=== PATIENT | female | born 1995 | race Caucasian/White ===

== ENCOUNTER 2019-05-09 10:42 | Emergency (ER) | payer SELFPAY ==
[2019-05-09 10:55] VITALS: BP 134/79; PULSE 86; RESP 18; TEMP 37; O2SAT 98; BMI 23.6
--- NOTE | 2019-05-09 11:00 | ED_ITS ---
HPI - Headache General: Chief Complaint: Altered Mental Status Stated Complaint: headache, cant remember. Patient comes in today complaining of a headache that started last night. Patient states she got upset and threw her girlfriend out but does not remember anything after that except waking up this morning with her headache. Patient states that she has had several concussion and has been diagnosed with postconcussion syndrome in the past. Patient appears well. Patient appears in no acute distress. Patient reports history of migraine headaches since childhood. No obvious deficits are noted. Patient appears well. Patient appears in mild to moderate pain. Time Seen by Provider: 05/09/19 10:59 Source: patient Mode of arrival: ambulatory Limitations: no limitations Review of Systems General: Reports: 10 or more systems reviewed and unremarkable except in HPI and below Neuro: Reports: headache PFSH ED PFSH: Statuses (acute, chronic, etc) shown below reflect problem list status as previously entered and may not be historically accurate Social History Smoking and tobacco status: current every day smoker Physical Exam Const: COMMON NORMALS: no apparent distress and oriented x3 GENERAL APPEARANCE: cooperative HENMT: COMMON NORMALS: normocephalic, external ears normal, EAC's normal, TM's normal bilaterally and external nose normal HEAD & SCALP: normal to inspection and normocephalic FACE & SINUS: normal facial exam NOSE: external nose normal GENERAL EAR: hearing grossly impaired EXTERNAL EAR: Yes external ears normal EXTERNAL AUDITORY CANAL: EAC's normal TYMPANIC MEMBRANE: TM's normal bilaterally MOUTH: oral and palatal mucosa normal THROAT: posterior oropharynx normal Eye: COMMON NORMALS: PERRL and EOMs intact bilaterally PUPIL: Yes PERRL Neck/C-Spine: COMMON NORMALS: full ROM and no lymphadenopathy Lymph: LYMPHATIC: no lymphedema noted Chest: COMMONS NORMALS: inspection of chest normal and palpation of chest normal Resp: COMMON NORMALS: normal respiratory effort and clear to auscultation bilaterally AUSCULTATION: clear to auscultation bilaterally Cardio: COMMON NORMALS: regular rate and regular rhythm RATE: regular rate RHYTHM: regular rhythm GI: COMMON NORMALS: normal to inspection, nondistended, normoactive bowel sounds and non-tender : COMMON NORMALS: Yes no CVA tenderness BLADDER/KIDNEY EXAM: Yes no CVA tenderness Back/Pelvis: COMMON NORMALS: no CVA tenderness and thoracic and lumbar spine normal to inspection Extremity: COMMON NORMALS: normal to inspection GENERAL: No edema Neuro: COMMON NORMALS: oriented x3, moves all extremities and no focal motor deficits Psych: COMMON NORMALS: mental status grossly normal and cooperative Skin: COMMON NORMALS: no rashes or lesions noted GENERAL SKIN EXAM: no rashes or lesions noted Course ED course: 1224, patient sleeping in room, no c/o noted. wjw Vital Signs: Vital signs: Vital Signs Temperature 98.6 F 05/09/19 10:55 Pulse Rate 75 05/09/19 12:01 Respiratory Rate 18 05/09/19 12:01 Blood Pressure 115/63 05/09/19 12:01 Pulse Oximetry 98 05/09/19 12:01 MDM - Headache MDM Narrative: Medical decision making narrative: Patient comes in today for persistent headache starting last night. Exam noted no focal neural deficits. Pupils were equal reactive. Patient moves all extremities well. No tenderness of the cervical spine was noted. Respirations were even lungs were clear to auscultation. Differential diagnosis includes postconcussion headaches, TBI, migraine headaches, tension type headaches, malingering. CT scan of the head noted no masses or bleeding. Laboratory values were insignificant. Patient was medicated in the ER with some mild to moderate improvement in pain. Patient will continue with naproxen and promethazine for further treatment of home for breakthrough and return of headache. Patient was recommended to follow-up with neurology with case management assistance for appointment. Patient agreed to plan and follow-up. Differential Diagnosis: Differential diagnosis headache: Likely migraine, te nsion headache, subarachnoid hemorrhage, headache and postconcussion syndrome Lab Data: Labs: Lab Results 05/09/19 05/09/19 05/09/19 Range/Units 11:35 11:40 11:40 WBC 5.9 (4.0-10.0) 10^3/ uL RBC 4.40 (4.1-5.3) 10^6/u L Hgb 12.7 (11.5-15.3) g/dL Hct 39.0 (37.0-47.0) % MCV 88.6 (81-99) fL MCH 28.9 (28.0-34.0) pg MCHC 32.6 (30.0-36.0) g/dL RDW 13.0 (12.1-15.1) % Plt Count 321 (130-400) 10^3/c mm MPV 9.7 (7.4-10.4) fL Neut % (Auto) 77.7 % Lymph % (Auto) 14.7 % Armstrong % (Auto) 4.1 % Eos % (Auto) 2.4 % Baso % (Auto) 0.9 % Neut # (Auto) 4.6 (1.8-7.7) 10^3/u L Lymph # (Auto) 0.9 (0.8-4.8) 10^3/u L Armstrong # (Auto) 0.2 (0.2-0.9) 10^3/u L Eos # (Auto) 0.1 (0.0-0.8) 10^3/u L Baso # (Auto) 0.1 (0.0-0.1) 10^3/u L Nucleated RBC % (a uto) 0 % Nucleated RBCs # 0.0 /100WBC Sodium 139 (136-145) mmol/L Potassium 3.6 (3.5-5.1) mmol/L Chloride 103 (98-107) mmol/L Carbon Dioxide 24 (22-29) mmol/L Anion Gap 15.6 (5-19) BUN 10 (6-20) mg/dL Creatinine 0.5 (0.5-0.9) mg/dL GFR Calculation 154.3 H (90-130) mL/min Glucose 101 (74-109) mg/dL Calcium 9.2 (8.6-10.0) mg/Dl Total Bilirubin 0.5 (0.15-1.2) mg/dL AST 16 (0-32) U/L ALT 13 (0-33) U/L Alkaline Phosphata se 71 (35-105) IU/L Total Protein 6.5 L (6.6-8.7) g/dL Albumin 5.2 (3.5-5.2) g/dL Globulin 1.3 (1.3-4.6) g/dL HCG, Qual (Negative) Urine Color Yellow (Yellow) Urine Appearance Hazy A (CLEAR) Urine pH 7 (5-7) Ur Specific Gravit y 1.015 (1.005-1.030) Urine Protein Neg (Negative) Urine Glucose (UA) Norm (Normal) Urine Ketones Negative (Negative) Urine Occult Blood Neg (Negative) Urine Nitrate Negative (Negative) Urine Bilirubin Neg (NEGATIVE) Urine Urobilinogen Norm (Negative) mg/dL Ur Leukocyte Janessa ase Negative (Negative) Urine RBC None (0-2) /hpf Urine WBC 0-4 H (0-5) /hpf Ur Squamous Epith Cells 10-15 H (0-5) Urine Bacteria 2+ H (NONE) Urine Mucus 2+ 05/09/19 Range/Units 11:40 WBC (4.0-10.0) 10^3/ uL RBC (4.1-5.3) 10^6/u L Hgb (11.5-15.3) g/dL Hct (37.0-47.0) % MCV (81-99) fL MCH (28.0-34.0) pg MCHC (30.0-36.0) g/dL RDW (12.1-15.1) % Plt Count (130-400) 10^3/c mm MPV (7.4-10.4) fL Neut % (Auto) % Lymph % (Auto) % Armstrong % (Auto) % Eos % (Auto) % Baso % (Auto) % Neut # (Auto) (1.8-7.7) 10^3/u L Lymph # (Auto) (0.8-4.8) 10^3/u L Armstrong # (Auto) (0.2-0.9) 10^3/u L Eos # (Auto) (0.0-0.8) 10^3/u L Baso # (Auto) (0.0-0.1) 10^3/u L Nucleated RBC % (a uto) % Nucleated RBCs # /100WBC Sodium (136-145) mmol/L Potassium (3.5-5.1) mmol/L Chloride (98-107) mmol/L Carbon Dioxide (22-29) mmol/L Anion Gap (5-19) BUN (6-20) mg/dL Creatinine (0.5-0.9) mg/dL GFR Calculation (90-130) mL/min Glucose (74-109) mg/dL Calcium (8.6-10.0) mg/Dl Total Bilirubin (0.15-1.2) mg/dL AST (0-32) U/L ALT (0-33) U/L Alkaline Phosphata se (35-105) IU/L Total Protein (6.6-8.7) g/dL Albumin (3.5-5.2) g/dL Globulin (1.3-4.6) g/dL HCG, Qual Negative (Negative) Urine Color (Yellow) Urine Appearance (CLEAR) Urine pH (5-7) Ur Specific Gravit y (1.005-1.030) Urine Protein (Negative) Urine Glucose (UA) (Normal) Urine Ketones (Negative) Urine Occult Blood (Negative) Urine Nitrate (Negative) Urine Bilirubin (NEGATIVE) Urine Urobilinogen (Negative) mg/dL Ur Leukocyte Janessa ase (Negative) Urine RBC (0-2) /hpf Urine WBC (0-5) /hpf Ur Squamous Epith Cells (0-5) Urine Bacteria (NONE) Urine Mucus Discharge Plan Discharge Patient Disposition: Home, Self-Care Clinical Impression: Headache, migraine, intractable Qualifiers: Migraine type: periodic headache syndrome Qualified Code(s): G43.C1 - Periodic headache syndromes in child or adult, intractable Condition: Stable Prescriptions: New naproxen 500 mg tablet 500 mg PO Q12H PRN (Reason: pain) Qty: 20 RF: 0 promethazine 25 mg tablet 25 mg PO Q6H PRN (Reason: nausea and vomiting) Qty: 20 RF: 0 Discharge Orders: Discharge Order (Routine); Ordered 05/09/19 Ordered By: Amrit Ramsey Referrals: Jaye Gonzalez DO [Primary Care Provider] - Discharge Activity: Increase activity as tolerated Activity Restrictions/Additional Instructions: Drink plenty of water Medications as directed for headache Follow-up with primary care in one week for recheck Return to ER for high fever or new concerns Case management to neurology for further evaluation and treatment of headache syndrome Coding Level of Care Code ED Drop Pit Worker for Kathi Fwd Exam Problem Focused
--- NOTE | 2019-05-09 11:09 | PC.NURSE ---
Patient states she does not remember last night.
--- NOTE | 2019-05-09 11:11 | CTR_ITS ---
PROCEDURE INFORMATION: Exam: CT Head Without Contrast Exam date and time: 05/09/2019 11:48 AM Age: 23 years old Clinical indication: Pain; Headache not specified TECHNIQUE: Imaging protocol: Computed tomography of the head without contrast. Total DLP: 814.84 mGy-cm Radiation optimization: All CT scans at this facility use at least one of these dose optimization techniques: automated exposure control; mA and/or kV adjustment per patient size (includes targeted exams where dose is matched to clinical indication); or iterative reconstruction. COMPARISON: CT head wo con* [id number] 10/26/2018 5:48 PM FINDINGS: Brain: Normal. No hemorrhage. Unremarkable white matter. No mass effect. Ventricles: Normal. No ventriculomegaly. Bones/joints: Unremarkable. No acute fracture. Sinuses: Visualized sinuses are unremarkable. No fluid levels. Mastoid air cells: Visualized mastoid air cells are well aerated. Soft tissues: Unremarkable. CT/CT head wo con* [id number] IMPRESSION: No acute intracranial abnormality. Radiation Dose CTDIVOL = (mGy): DLP = 814.84 (mGy-cm)
[2019-05-09] MEDS: metoclopramide 5 mg/mL SDV 2 mL 10 MG IV (11:34)
[2019-05-09] MEDS: diphenhydrAMINE 50 mg/mL SDV 1mL 25 MG IVP (11:34)
[2019-05-09 11:53] LABS: Basophils # 0.1 10^3/uL (0.0-0.1); Basophils % 0.9 %; Eosinophils # 0.1 10^3/uL (0.0-0.8); Eosinophils % 2.4 %; Hemoglobin 12.7 g/dL (11.5-15.3); Lymphocytes # 0.9 10^3/uL (0.8-4.8); Lymphocytes % 14.7 %; Mean Corpuscular HGB Conc 32.6 g/dL (30.0-36.0); Mean Corpuscular Hemoglobin 28.9 pg (28.0-34.0); Mean Corpuscular Volume 88.6 fL (81-99); Mean Platelet Volume 9.7 fL (7.4-10.4); Monocytes # 0.2 10^3/uL (0.2-0.9); Monocytes % 4.1 %; Neutrophils # 4.6 10^3/uL (1.8-7.7); Neutrophils % 77.7 %; Nucleated Red Blood Cells % 0 %; Platelet Count 321 10^3/cmm (130-400); White Blood Count 5.9 10^3/uL (4.0-10.0)
[2019-05-09 12:01] VITALS: BP 115/63; PULSE 75; RESP 18; O2SAT 98
--- NOTE | 2019-05-09 12:03 | PC.NURSE ---
Patient sleeping at this time with family at bedside.
[2019-05-09 12:08] LABS: Alanine Aminotransferase 13 U/L (0-33); Albumin Level 5.2 g/dL (3.5-5.2); Alkaline Phosphatase 71 IU/L (35-105); Anion Gap 15.6 (5-19); Aspartate Amino Transferase 16 U/L (0-32); Blood Urea Nitrogen 10 mg/dL (6-20); Calcium 9.2 mg/Dl (8.6-10.0); Carbon Dioxide 24 mmol/L (22-29); Chloride 103 mmol/L (98-107); Globulin 1.3 g/dL (1.3-4.6); Glomerular Filtration Rate 154.3 mL/min (90-130); Glucose 101 mg/dL (74-109); Potassium 3.6 mmol/L (3.5-5.1); Sodium 139 mmol/L (136-145); Total Bilirubin 0.5 mg/dL (0.15-1.2); Total Protein 6.5 g/dL (6.6-8.7)
[2019-05-09 12:21] LABS: HCG, Serum Qual Negative (Negative)
[2019-05-09 12:30] LABS: Bilirubin Urine Neg (NEGATIVE); Blood Urine Neg (Negative); Glucose Urine UA Norm (Normal); Ketones Urine Negative (Negative); Leukocyte Esterase Urine Negative (Negative); Nitrate Urine Negative (Negative); Protein Urine Neg (Negative); Specific Gravity, Urine 1.015 (1.005-1.030); Urine Appearance Hazy (CLEAR); Urine Color Yellow (Yellow); Urobilinogen Urine Norm (Negative); pH Urine 7 (5-7)
[2019-05-09 12:31] LABS: Bacteria Urine 2+; WBC Urine 0-4 /hpf (0-5)
[2019-05-09 12:32] LABS: Mucus Urine 2+
[2019-05-09 12:33] LABS: Add Urine Culture? No
[2019-05-09] MEDS: dexamethasone 10 mg/mL INJ IVP (13:36)
[2019-05-09] MEDS: ketorolac 30 mg/mL INJ 15 MG IVP (13:36)
[2019-05-09 13:53] VITALS: BP 121/63; PULSE 91; RESP 18; O2SAT 98
--- NOTE | 2019-05-11 12:02 | DCPLANNER ---
general road production manager had message to schedule a follow up appointment for patient with Dr. Leach. general road production manager called the office of Dr. Leach, spoke with Ginger, a follow up appointment is scheduled for Friday, July 14, 2019 at 11:[address] Leach. general road production manager called patient with appointment information.
--- NOTE | 2019-07-15 10:08 | DCPLANNER ---
Patient did not attend appointment scheduled for 07.14.[address] Leach.
== END 2019-05-09 13:47 | disposition home or self-care (01) ==
PROVIDERS: Emergency Provider Nurse Practitioner Family; Family Provider Family Medicine; PCP Family Medicine
DX: G43.C1 Periodic headache syndromes in child or adult, intractable (principal); F17.210 Nicotine dependence, cigarettes, uncomplicated
CPT/HCPCS: 70450; 80053; 81001; 84703; 85025; 96374; 99281; A9270; J1100; J1200; J1885; J2765

== ENCOUNTER → 2019-06-04 16:47 | Outpatient (BNVA) | payer SELFPAY | PROVIDERS: Family Provider Family Medicine; PCP Family Medicine; Visit Provider Nurse Practitioner | DX: M79.641 Pain in right hand (principal); M79.9 Soft tissue disorder, unspecified | CPT/HCPCS: 73130 ==